=== PATIENT | female | born 1990 | race Caucasian/White ===

== ENCOUNTER 2017-09-06 10:58 | Emergency (ER) | payer SELFPAY ==
[~2017-09-06] VITALS: Ht 170.2 cm; Wt 113.4 kg
[2017-09-06 11:02] VITALS: BP 138/70
--- NOTE | 2017-09-06 11:10 | NUR ---
PT [id number], RR EVEN AND UNLABORED AT THIS TIME; PT TO LOBBY AWAITING OPEN BED.
--- NOTE | 2017-09-06 13:02 | NUR ---
CALLED PT FROM LOBBY AND FROM OUTSIDE LOBBY; NO ANSWER; PATIENT LEFT WITHOUT BEING SEEN BY DR. YA. NO FURTHER CARE PROVIDED FOR PATIENT.
== END 2017-09-06 13:02 | disposition left against medical advice (07) ==
LOC: MED 10:58
DX: Z53.21 Procedure and treatment not carried out due to patient leaving prior to being seen by health care provider (principal)

== ENCOUNTER 2023-07-04 22:28 | Emergency (ER) | payer MEDICAID ==
[~2023-07-04] VITALS: Ht 165.1 cm; Wt 148.8 kg
[2023-07-04 22:52] VITALS: BP 141/96; PULSE 101; RESP 20; TEMP 97.6; O2SAT 99
[2023-07-05 01:51] VITALS: BP 141/96; PULSE 101; RESP 20; TEMP 97.6; O2SAT 99
== END 2023-07-05 01:52 | disposition home or self-care (01) ==
LOC: MED 22:28
DX: S43.492A Other sprain of left shoulder joint, initial encounter (principal); S63.592A Other specified sprain of left wrist, initial encounter; W18.30XA Fall on same level, unspecified, initial encounter; Y93.89 Activity, other specified; Y92.89 Other specified places as the place of occurrence of the external cause; Y99.8 Other external cause status
CPT/HCPCS: 73030; 73110; 81025; 99284; Q0092

== ENCOUNTER 2023-12-27 02:55 | Emergency (ER) | payer MEDICAID ==
[~2023-12-27] VITALS: Ht 170.2 cm; Wt 140.6 kg
[2023-12-27 03:18] VITALS: BP 114/73; PULSE 110; RESP 18; TEMP 98; O2SAT 100
[2023-12-27 04:18] VITALS: BP 114/73; PULSE 110; RESP 18; TEMP 98; O2SAT 100
== END 2023-12-27 04:18 | disposition home or self-care (01) ==
LOC: MED 02:55
DX: S51.051A Open bite, right elbow, initial encounter (principal); Y04.1XXA Assault by human bite, initial encounter; Y93.89 Activity, other specified; Y92.89 Other specified places as the place of occurrence of the external cause; Y99.8 Other external cause status
CPT/HCPCS: 90471; 90715; 99283

== ENCOUNTER 2024-03-15 19:53 | Emergency (ER) | payer MEDICAID ==
[~2024-03-15] VITALS: Ht 170.2 cm; Wt 145.1 kg
[2024-03-15 20:01] VITALS: BP 155/88; PULSE 101; RESP 16; TEMP 98.2; O2SAT 97
[2024-03-15 20:05] VITALS: O2SAT 97
[2024-03-15] MEDS: MORPHINE SULFATE 4 MG/ML SYR IM ONE (20:41)
[2024-03-15] MEDS: KETOROLAC 30 MG/ML VIAL IM ONE (20:42)
[2024-03-15 22:53] VITALS: BP 155/88; PULSE 101; RESP 16; TEMP 98.2; O2SAT 97
== END 2024-03-15 22:52 | disposition home or self-care (01) ==
LOC: MED 19:53
DX: S83.92XA Sprain of unspecified site of left knee, initial encounter (principal); W19.XXXA Unspecified fall, initial encounter; Y93.89 Activity, other specified; Y92.89 Other specified places as the place of occurrence of the external cause; Y99.8 Other external cause status
CPT/HCPCS: 73562; 96372; 99284; J1885; J2270; Q0092